=== PATIENT | female | born 1955 | race Two or more races ===

== ENCOUNTER 2025-05-20 22:20 | Emergency (ER) | payer OTHER ==
[~2025-05-20] VITALS: Ht 167.6 cm; Wt 75.0 kg
[2025-05-20 22:24] VITALS: O2SAT 98
[2025-05-20] MEDS ORDERED: ACETAMINOPHEN 325MG TABLET PO ONE (22:45)
[2025-05-20] MEDS ORDERED: LORAZEPAM 2MG/ML UD SYRINGE IV SCH (23:00)
[2025-05-21] MEDS: SODIUM CHLORIDE 0.9% (SEPSIS BOLUS) IV ONE (00:07)
[2025-05-21 00:27] LABS: BASOPHILS % 1.0 % (0.0-2.0); EOSINOPHILS % 2.6 % (0.0-5.0); HEMATOCRIT. 41.6 % (36.0-48.0); HEMOGLOBIN. 14.1 g/dL (12.0-16.0); LYMPHOCYTES % 38.6 % (20.0-50.0); MEAN PLATELET VOLUME 10.2 fl (7.4-10.4); MONOCYTES % 6.7 % (2.0-8.0); NEUTROPHILS % 51.1 % (40.0-76.0); PLATELET 216 x1000/uL (130-400); RED BLOOD CELL COUNT 4.86 mill/uL (4.2-5.4); RED CELL DISTRIBUTION WIDTH 13.4 % (11.6-14.6)
[2025-05-21 00:28] LABS: CLARITY URINE CLEAR (CLEAR); COLOR URINE YELLOW (YELLOW); GLUCOSE URINE NEGATIVE (NEGATIVE); KETONES URINE NEGATIVE (NEGATIVE); LEUKOCYTE ESTERASE URINE NEGATIVE (NEGATIVE); NITRITE URINE NEGATIVE (NEGATIVE); OCCULT BLOOD URINE NEGATIVE (NEGATIVE); PH URINE 8.5 (4.5-8.0); PROTEIN URINE NEGATIVE (NEGATIVE); SPECIFIC GRAVITY URINE 1.006 (1.005-1.030); UROBILINOGEN URINE 0.2 E.U./dL (0.2-1.0)
[2025-05-21 00:50] LABS: CREATININE 0.9 mg/dL (0.6-1.0); UREA NITROGEN BLOOD 5 mg/dL (9-23)
[2025-05-21 00:51] LABS: TROPONIN I HIGH SENSITIVITY < 4 ng/L (3.0-34)
[2025-05-21] MEDS: LORAZEPAM 2MG/ML UD SYRINGE IV NR (01:59)
[2025-05-21] MEDS: ACETAMINOPHEN 325MG TABLET PO NR (02:00)
[2025-05-21] MEDS: POTASSIUM CHLORIDE 20MEQ/PACKET PO NR (02:00)
[2025-05-21 02:41] LABS: *AMPHETAMINES SCREEN URINE NEGATIVE (NEGATIVE); *BARBITURATES SCREEN URINE NEGATIVE (NEGATIVE); *BENZODIAZEPINES SCREEN URINE NEGATIVE (NEGATIVE); *COCAINE SCREEN URINE NEGATIVE (NEGATIVE); CANNABINOID URINE SCREEN NEGATIVE (NEGATIVE); ECSTASY MDMA SCREEN URINE NEGATIVE (NEGATIVE); METHADONE URINE SCREEN NEGATIVE (NEGATIVE); OPIATES URINE SCREEN NEGATIVE (NEGATIVE); PHENCYCLIDINE URINE SCREEN NEGATIVE (NEGATIVE)
[2025-05-21 02:58] VITALS: BP 137/86; PULSE 99; RESP 22; TEMP 36.8; O2SAT 95
[2025-05-21] MEDS ORDERED: PIPERACILLIN/TAZO 3.375G/50ML 50 ML IV NR (03:00)
[2025-05-21] MEDS ORDERED: VANCOMYCIN 1G PREMIX 200 ML IV NR (03:00)
[2025-05-21 03:47] LABS: INFLUENZA TYPE A Presumptive Negative (Pres. Neg.); INFLUENZA TYPE B Presumptive Negative (Pres. Neg.)
[2025-05-21 03:49] LABS: RESPIRATORY SYNCYTIAL VIRUS Not Detected (Not Detectd)
== END 2025-05-21 03:50 | disposition left against medical advice (07) ==
LOC: ER 22:20 → CMPBEDREQ 05-21 09:02
DX: G40.909 Epilepsy, unspecified, not intractable, without status epilepticus (principal); R05.9 Cough, unspecified; R09.81 Nasal congestion; R53.1 Weakness; E87.20 Acidosis, unspecified; R06.02 Shortness of breath; Z20.822 Contact with and (suspected) exposure to COVID-19
CPT/HCPCS: 80048; 83880; 83605 ×2; 85025; 87420; 87040; 84484; 87804 ×2; 36415; 84145; 71045; 93005; 99291; 87426; 80305; 81003; 80320; 73502; 70450; 96361; 96374; J7030; J2060; J2543; J3373; G0480